=== PATIENT | male | born 1980 | race Caucasian/White ===

== ENCOUNTER 2024-10-23 19:21 | Emergency (ER) | payer MEDICAID ==
[~2024-10-23] VITALS: Ht 175.3 cm; Wt 105.0 kg
[2024-10-23 19:35] VITALS: TEMP 99.4
[2024-10-23] MEDS: TraMADol HCL 50 MG TABLET PO ONE (22:27)
[2024-10-23 22:29] LABS: COVID AG,FIA SOURCE NASAL SWAB
[2024-10-23 22:55] LABS: SARS-COV2 (COVID) ANTIGEN,FIA Negative (Negative)
[2024-10-23 22:58] LABS: INFLUENZA TYPE A NEGATIVE FOR TYPE A (NEGATIVE); INFLUENZA TYPE B NEGATIVE FOR TYPE B (NEGATIVE)
[2024-10-23] MEDS ORDERED: AMOX250C4 PO (23:11)
[2024-10-23] MEDS ORDERED: TRAM50TA5 PO (23:14)
[2024-10-23 23:21] VITALS: BP 139/72; PULSE 80; RESP 18; O2SAT 99
== END 2024-10-23 23:23 | disposition home or self-care (01) ==
LOC: EMS 19:21
DX: H66.91 Otitis media, unspecified, right ear (principal); Z20.822 Contact with and (suspected) exposure to COVID-19
CPT/HCPCS: 87804; 99283